=== PATIENT | female | born 1965 | race African-American/Black ===

== ENCOUNTER 2025-03-04 11:36 | Emergency (ER) | payer MEDICAID, OTHER ==
[~2025-03-04] VITALS: Ht 149.9 cm; Wt 61.0 kg
[2025-03-04 11:37] VITALS: O2SAT 99
[2025-03-04 12:20] LABS: BASOPHILS % 0.8 % (0.0-2.0); EOSINOPHILS % 2.2 % (0.0-5.0); HEMATOCRIT. 46.7 % (36.0-48.0); HEMOGLOBIN. 15.6 g/dL (12.0-16.0); LYMPHOCYTES % 19.3 % (20.0-50.0); MEAN PLATELET VOLUME 10.5 fl (7.4-10.4); MONOCYTES % 4.9 % (2.0-8.0); NEUTROPHILS % 72.8 % (40.0-76.0); PLATELET 178 x1000/uL (130-400); RED BLOOD CELL COUNT 5.15 mill/uL (4.2-5.4); RED CELL DISTRIBUTION WIDTH 13.5 % (11.6-14.6)
[2025-03-04] MEDS: MORPHINE SULFATE 4 MG/ML INJ (FOR IV/IM USE) IV ONE (12:31)
[2025-03-04 12:43] LABS: CREATININE 0.8 mg/dL (0.6-1.0)
[2025-03-04 12:44] LABS: ETHANOL BLOOD < 10 mg/dL (<10); UREA NITROGEN BLOOD 11 mg/dL (9-23)
[2025-03-04 12:45] LABS: ASPARTATE AMINOTRANSFERASE 28 IU/L (<34); TROPONIN I HIGH SENSITIVITY 24 ng/L (3.0-34)
[2025-03-04 12:46] LABS: BILIRUBIN DIRECT 0.3 mg/dL (<=3.0); BILIRUBIN TOTAL 1.2 mg/dL (0.1-1.0); PROTEIN TOTAL 7.2 g/dL (6.0-8.3)
[2025-03-04 15:38] LABS: TROPONIN I HIGH SENSITIVITY 24 ng/L (3.0-34)
[2025-03-04 17:25] VITALS: BP 175/75; PULSE 60; RESP 20; TEMP 36.7; O2SAT 98
== END 2025-03-04 17:24 | disposition short-term general hospital (02) ==
LOC: ER 11:36 → CMPBEDREQ 03-05 07:54
DX: R07.89 Other chest pain (principal); R00.2 Palpitations; I10 Essential (primary) hypertension; R06.02 Shortness of breath; Q21.3 Tetralogy of Fallot; Z98.890 Other specified postprocedural states; Z95.2 Presence of prosthetic heart valve
CPT/HCPCS: 80076; 80048; 80320; 83880; 85025; 84484; 36415; 71045; 93005; 96374; 99285; J2270; G0480